=== PATIENT | female | born 2000 | race Hispanic/Latino ===

== ENCOUNTER 2022-05-07 18:39 | Observation (INO) | payer BC ==
[~2022-05-07] VITALS: Ht 152.4 cm; Wt 46.7 kg
[2022-05-07 19:18] VITALS: BP 109/58
[2022-05-07] MEDS ORDERED: LACTATED RINGERS 1000ML 1,000 ML IV SCH (19:30)
[2022-05-07] MEDS ORDERED: PROMETHAZINE HCL 25 MG/ML 1ML AMPULE IM PRN (19:30)
[2022-05-07] MEDS ORDERED: MEPERIDINE-PF 50 MG/ML SYG IVP PRN (19:30)
[2022-05-07] MEDS ORDERED: ONDANSETRON 4MG INJ IVP PRN (19:30)
[2022-05-07 20:05] LABS: HEMATOCRIT 32.7 % (36-48); MEAN CORPUSCULAR HEMOGLOBIN 32.3 pg (27.0-33.0); MEAN CORPUSCULAR HGB CONC 33.6 g/dL (32.0-36.0); MEAN CORPUSCULAR VOLUME 95.9 fL (80-100); RED BLOOD CELL COUNT(AUTO) 3.41 MIL/uL (4.00-5.50); RED CELL DISTRIBUTION WIDTH 12.9 % (11.0-15.5); WHITE BLOOD COUNT (AUTO) 7.3 K/uL (4.8-10.8)
[2022-05-07] MEDS ORDERED: ACET-66 PO (20:14)
[2022-05-07] MEDS ORDERED: PREN1TAB26 PO (20:14)
[2022-05-07 20:19] LABS: ALBUMIN 3.1 g/dL (3.5-5.0); CREATININE 0.5 mg/dL (0.5-1.5); POTASSIUM 3.8 mmol/L (3.5-5.1); TOTAL PROTEIN, SERUM 6.6 g/dL (6.0-8.3)
[2022-05-07 20:57] LABS: APPEARANCE,URINE CLEAR (CLEAR); BILIRUBIN,URINE NEGATIVE (NEGATIVE); COLOR,URINE LIGHT-YELLOW (YELLOW); GLUCOSE, URINE (UA) NEGATIVE (NEGATIVE); KETONES,URINE NEGATIVE (NEGATIVE); LEUKOCYTE ESTERASE ,URINE NEGATIVE Leu/uL (NEGATIVE); NITRATE,URINE NEGATIVE (NEGATIVE); OCCULT BLOOD,URINE NEGATIVE (NEGATIVE); PROTEIN,URINE NEGATIVE (NEGATIVE); UROBILINOGEN,URINE 0.2 mg/dL (0.2-1.0)
== END 2022-05-07 22:10 | disposition home or self-care (01) ==
LOC: WSH 18:39
PROVIDERS: ADMIT Obstetrics & Gynecology; ATTEND Obstetrics & Gynecology
DX: O26.892 Other specified pregnancy related conditions, second trimester (principal); R10.11 Right upper quadrant pain; Z3A.17 17 weeks gestation of pregnancy
CPT/HCPCS: 59025; 82150; 80053; 83690; 85027; 87088; 81003; 36415; 76805; G0378 ×3

== ENCOUNTER 2022-08-15 12:18 | Observation (INO) | payer BC, MEDICAID ==
[~2022-08-15] VITALS: Ht 152.4 cm; Wt 54.4 kg
[~2022-08-15 12:18] MED LIST: ACET-66 PO; MECL-160 PO; NITR100C4 PO; PREN1TAB26 PO
[2022-08-15 12:22] VITALS: BP 107/59
[2022-08-15] MEDS ORDERED: 0.9%NACL 1000ML 1,000 ML IV ONE (16:30)
[2022-08-15] MEDS ORDERED: CEPH500B PO (17:18)
[2022-08-15 17:32] LABS: BASOPHILS % (AUTO) 0.3 % (0.0-5.0); EOSINOPHILS % (AUTO) 0.8 % (0.0-8.0); HEMATOCRIT 33.4 % (36-48); LYMPHOCYTES % (AUTO) 20.6 % (21.0-51.0); MEAN CORPUSCULAR HEMOGLOBIN 32.2 pg (27.0-33.0); MEAN CORPUSCULAR HGB CONC 33.8 g/dL (32.0-36.0); MEAN CORPUSCULAR VOLUME 95.2 fL (80-100); MONOCYTES % (AUTO) 4.5 % (3.0-13.0); PLATELET COUNT (AUTO) 169 K/uL (130-400); RED BLOOD CELL COUNT(AUTO) 3.51 MIL/uL (4.00-5.50); RED CELL DISTRIBUTION WIDTH 13.2 % (11.0-15.5); WHITE BLOOD COUNT (AUTO) 9.3 K/uL (4.8-10.8)
[2022-08-15 17:39] LABS: CREATININE 0.4 mg/dL (0.5-1.5); POTASSIUM 3.9 mmol/L (3.5-5.1)
[2022-08-15 17:42] LABS: APPEARANCE,URINE CLEAR (CLEAR); BILIRUBIN,URINE NEGATIVE (NEGATIVE); COLOR,URINE LIGHT-YELLOW (YELLOW); GLUCOSE, URINE (UA) NEGATIVE (NEGATIVE); KETONES,URINE 20 mg/dL (NEGATIVE); LEUKOCYTE ESTERASE ,URINE 25 Leu/uL (NEGATIVE); NITRATE,URINE NEGATIVE (NEGATIVE); OCCULT BLOOD,URINE NEGATIVE (NEGATIVE); PH,URINE 6.5 (5.0-8.0); PROTEIN,URINE NEGATIVE (NEGATIVE); UROBILINOGEN,URINE 0.2 mg/dL (0.2-1.0)
[2022-08-15 17:44] LABS: ALBUMIN 2.9 g/dL (3.5-5.0); TOTAL PROTEIN, SERUM 6.7 g/dL (6.0-8.3)
[2022-08-15 18:31] LABS: MUCUS,URINE RARE LPF (None Seen); RBC,URINE 0-1 /HPF (0-1); SQUAMOUS EPITHELIAL CELL,UR FEW /HPF (0-2)
[2022-08-15] MEDS ORDERED: ONDANSETRON 4MG INJ IVP PRN (19:00)
[2022-08-15] MEDS ORDERED: ACETAMINOPHEN 500 MG TABLET PO PRN (19:00)
[2022-08-15] MEDS ORDERED: LOPERAMIDE 1 MG/7.5 ML UDCUP PO PRN (19:00)
[2022-08-15] MEDS ORDERED: LACTATED RINGERS 1000ML 1,000 ML IV PRN (19:00)
== END 2022-08-16 08:29 | disposition home or self-care (01) ==
LOC: EDH 12:18 → LDH 17:31
PROVIDERS: ADMIT Obstetrics & Gynecology; ATTEND Obstetrics & Gynecology
DX: O26.893 Other specified pregnancy related conditions, third trimester (principal); Z20.822 Contact with and (suspected) exposure to COVID-19; R53.1 Weakness; R11.0 Nausea; O36.8130 Decreased fetal movements, third trimester, not applicable or unspecified; Z3A.32 32 weeks gestation of pregnancy
CPT/HCPCS: 96374; 96361 ×2; 99284; 80053; 84703; 85025; 86900; 86901; 87880; 87804 ×2; 81001; 36415; 87635; 76805; G0378 ×13; C9803; J7030; J2405; J7120

== ENCOUNTER 2023-10-11 18:29 | Emergency (ER) | payer BC, MEDICAID ==
[~2023-10-11] VITALS: Ht 165.1 cm; Wt 48.1 kg
[~2023-10-11 18:29] MED LIST changes: -ACET-66 PO; +AMOX-426 PO; +AMOX1TAB15 PO; -MECL-160 PO; -NITR100C4 PO
[2023-10-11] MEDS: 0.9%NACL 1000ML 1,000 ML IV ONE (19:43)
[2023-10-11] MEDS: ONDANSETRON 4MG INJ IVP ONE (19:43)
[2023-10-11] MEDS: ACETAMINOPHEN 500 MG TABLET PO ONE (19:43)
[2023-10-11 20:12] LABS: SARS-CoV-2, RNA, NAAT NEGATIVE SARS CoV-2 (NEGATIVE)
[2023-10-11 20:17] LABS: INFLUENZA TYPE A Negative For Type A (NEGATIVE); INFLUENZA TYPE B Negative For Type B (NEGATIVE)
[2023-10-11 20:21] LABS: APPEARANCE,URINE CLEAR (CLEAR); BILIRUBIN,URINE NEGATIVE (NEGATIVE); COLOR,URINE COLORLESS (YELLOW); GLUCOSE, URINE (UA) NEGATIVE (NEGATIVE); KETONES,URINE NEGATIVE (NEGATIVE); LEUKOCYTE ESTERASE ,URINE NEGATIVE Leu/uL (NEGATIVE); NITRATE,URINE NEGATIVE (NEGATIVE); OCCULT BLOOD,URINE NEGATIVE (NEGATIVE); PROTEIN,URINE NEGATIVE (NEGATIVE); UROBILINOGEN,URINE 0.2 mg/dL (0.2-1.0)
[2023-10-11 20:23] LABS: ADD UA MICROSCOPIC NO
[2023-10-11 20:34] LABS: BASOPHILS # (AUTO) 0.02 K/uL (0.00-0.20); BASOPHILS % (AUTO) 0.2 % (0.0-5.0); HEMATOCRIT 38.4 % (36-48); IMMATURE GRANULOCYTE ABSOLUTE 0.04 K/uL (0-1); LYMPHOCYTES # (AUTO) 0.6 K/uL (1.0-4.8); LYMPHOCYTES % (AUTO) 6.3 % (21.0-51.0); MEAN CORPUSCULAR HEMOGLOBIN 32.1 pg (27.0-33.0); MEAN CORPUSCULAR HGB CONC 34.4 g/dL (32.0-36.0); MEAN CORPUSCULAR VOLUME 93.4 fL (80-100); MONOCYTES # (AUTO) 0.4 K/uL (0.1-1.0); MONOCYTES % (AUTO) 4.4 % (3.0-13.0); NEUTROPHILS # (AUTO) 7.9 K/uL (1.8-7.7); NEUTROPHILS % (AUTO) 88.7 % (40.0-77.0); PLATELET COUNT (AUTO) 212 K/uL (130-400); RED BLOOD CELL COUNT(AUTO) 4.11 MIL/uL (4.00-5.50); RED CELL DISTRIBUTION WIDTH 12.6 % (11.0-15.5); WHITE BLOOD COUNT (AUTO) 8.9 K/uL (4.8-10.8)
[2023-10-11 20:48] LABS: WBC MORPHOLOGY CONSISTENT W/DIFF
[2023-10-11 20:54] LABS: ALBUMIN 3.6 g/dL (3.5-5.0); BILIRUBIN,TOTAL 0.6 mg/dL (0.2-1.0); CREATININE 0.6 mg/dL (0.5-1.0); POTASSIUM 4.3 mmol/L (3.5-5.1); TOTAL PROTEIN, SERUM 7.7 g/dL (6.0-8.3)
[2023-10-11 21:38] VITALS: TEMP 99.4
[2023-10-11 22:21] VITALS: BP 98/50; PULSE 92; RESP 18; O2SAT 98
== END 2023-10-11 23:04 | disposition home or self-care (01) ==
LOC: EDH 18:29
DX: E86.0 Dehydration (principal); R50.9 Fever, unspecified; J06.9 Acute upper respiratory infection, unspecified; Z20.822 Contact with and (suspected) exposure to COVID-19
CPT/HCPCS: 99284; 96374; 71045; 87635; 96361; 80053; 84703; 83690; 85025; 87880; 87804 ×2; 83605; 81003; 36415; J7030; J2405